=== PATIENT | male | born 2000 | race Caucasian/White ===

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

== ENCOUNTER 2020-12-20 23:39 | Emergency (ER) | payer BC ==
[2020-12-20 23:49] VITALS: BP 98/57; PULSE 58; TEMP 97.9; BMI 19.5
[2020-12-21] MEDS ORDERED: AMOX TR/POT CLAV 875MG/125MG TABLETS (FP) PO ONE (00:05)
[2020-12-21] MEDS ORDERED: AMOX TR/POT CLAV 875MG/125MG TABLETS (FP) ONE (00:09)
[2020-12-21] MEDS ORDERED: DIPHTH,PERTUSS(ACELL),TET 0.5 ML DISP.SYRIN IM ONE ×2 (00:15→00:17)
== END 2020-12-21 00:22 | disposition home or self-care (01) ==
LOC: FER 23:39
PROC: 3E0234Z Introduction of Serum, Toxoid and Vaccine into Muscle, Percutaneous Approach (ICD-10-PCS; principal; 2020-12-20)
DX: S61.431A Puncture wound without foreign body of right hand, initial encounter (principal); W54.0XXA Bitten by dog, initial encounter
CPT/HCPCS: 90715; 99284-25

== ENCOUNTER 2022-11-22 12:49 | Emergency (ER) | payer BC ==
[2022-11-22 12:54] VITALS: BMI 23.3
[2022-11-22 16:24] VITALS: BP 96/42; PULSE 74; RESP 16; TEMP 98.1
== END 2022-11-22 16:24 | disposition home or self-care (01) ==
LOC: JER 12:49
DX: R07.89 Other chest pain (principal); J30.0 Vasomotor rhinitis; Z20.822 Contact with and (suspected) exposure to COVID-19
CPT/HCPCS: 0241U-QW; 71046-TC-FY; 93005; 93010; 99285-25

== ENCOUNTER 2023-12-08 21:44 | Emergency (ER) | payer BC ==
[2023-12-08 21:56] VITALS: BP 111/66; PULSE 84; RESP 16; TEMP 98.1; BMI 25.0
== END 2023-12-08 22:39 | disposition home or self-care (01) ==
LOC: FER 21:44
DX: R39.198 Other difficulties with micturition (principal)
CPT/HCPCS: 99283-25

== ENCOUNTER 2024-06-12 17:44 | Emergency (ER) | payer BC ==
[2024-06-12 18:19] VITALS: BP 117/70; PULSE 66; RESP 16; TEMP 97.7; BMI 24.9
== END 2024-06-12 18:36 | disposition home or self-care (01) ==
LOC: FER 17:44
DX: R05.1 Acute cough (principal); R09.81 Nasal congestion
CPT/HCPCS: 0241U-QW; 99283-25